=== PATIENT | female | born 1985 | race American Indian/Alaskan Native ===

== ENCOUNTER 2016-05-16 07:49 | Emergency (ER) | payer OTHER ==
[2016-05-16 08:42] LABS: Basophils % (Auto) 0.2 % (0.0-1.8); Eosinophils % (Auto) 0.5 % (0.0-4.3); Mean Corpuscular HGB Conc 28 % (30-34); Platelet Count 322 K/mm3 (140-440); Red Blood Count 4.72 M/mm3 (3.65-5.03); White Blood Count 6.9 K/mm3 (4.5-11.0)
[2016-05-16 08:43] LABS: Hematocrit 29.9 % (30.3-42.9); Hemoglobin 8.5 gm/dl (10.1-14.3); Mean Corpuscular Hemoglobin 18 pg (28-32); Mean Corpuscular Volume 63 fl (79-97); Red Cell Distribution Width 24.1 % (13.2-15.2)
[2016-05-16 09:00] LABS: Alanine Aminotransferase 29 units/L (7-56); Albumin 3.9 g/dL (3.9-5); Albumin/Globulin Ratio 1.1 %; Alkaline Phosphatase 88 units/L (35-129); Anion Gap 20 mmol/L; Bilirubin,Total 0.4 mg/dL (0.1-1.2); Blood Urea Nitrogen 7 mg/dL (7-17); Calcium 8.3 mg/dL (8.4-10.2); Carbon Dioxide 23 mmol/L (22-30); Glucose 102 mg/dL (65-100); Lipase 26 units/L (13-60); Potassium 4.1 mmol/L (3.6-5.0); Sodium 138 mmol/L (137-145); Total Protein 7.3 g/dL (6.3-8.2)
--- NOTE | 2016-05-16 23:24 | Emergency Department Report ---
HPI - General Chief Complaint: Abdominal Pain Time Seen by Provider: 05/16/16 22:51 - HPI HPI: This is a 30-year-old Af[place] female presents to the emergency department with a one-week history of lower abdominal pain and more recently some right lower back pain. She denies any dysuria, vaginal bleeding, vaginal discharge, vomiting, fever, numbness or paresthesias or any problem with bowel or bladder. She does have some nausea. She tried some aspirin for her symptoms without much relief. She does not have a primary care doctor. No recent travel or sick contacts at home. She denies any past medical history. She has a past surgical history of appendectomy. ED Past Medical Hx - Past Medical History Previous Medical History?: No - Surgical History Past Surgical History?: Yes Hx Appendectomy: Yes - Social History Smoking Status: Never Smoker Substance Use Type: None - Medications Home Medications: Home Medications Medication Instructions Recorded Confirmed Last Taken Type Meclizine HCl [Antivert] 25 mg PO Q6H PRN #20 tablet 06/08/14 Unknown Rx Promethazine [Phenergan] 25 mg PO Q6H PRN #14 tablet 06/08/14 Unknown Rx HYDROcodone/APAP 5-325 [[place] 1 each PO Q6HR PRN #10 tablet 05/17/16 Unknown Rx 5/325] ED Review of Systems ROS: Stated complaint: STOMACH AND BACK PAIN Other details as noted in HPI Comment: All other systems reviewed and negative Constitutional: denies: chills, fever Eyes: denies: eye pain, eye discharge, vision change ENT: denies: ear pain, throat pain Cardiovascular: denies: chest pain, palpitations Gastrointestinal: abdominal pain, nausea. denies: vomiting Genitourinary: denies: urgency, dysuria, discharge Musculoskeletal: back pain. denies: arthralgia Skin: denies: rash, lesions Neurological: denies: headache, weakness, paresthesias Physical Exam - Physical Exam Vital Signs: Vital Signs 05/16/16 08:05 Temperature 98.3 F Pulse Rate 98 H Respiratory 16 Rate Blood Pressure 152/84 O2 Sat by Pulse 100 Oximetry Physical Exam: GENERAL: The patient is well-developed well-nourished. HEENT: Normocephalic. Atraumatic. Extraocular motions are intact. Patient has moist mucous membranes. Pupils equal reactive to light bilaterally. NECK: Supple. Trachea is midline. CHEST/LUNGS: Clear to auscultation. There is no respiratory distress noted. HEART/CARDIOVASCULAR: Regular. There is no tachycardia. There is no gallop rub or murmur. ABDOMEN: Abdomen is soft. There is some tenderness to palpation to the lower quadrants of the abdomen. No guarding rebound tenderness. Morbidly obese habitus. Patient has normal bowel sounds. There is no abdominal distention. SKIN: There is no rash. Warm and dry. NEURO: The patient is awake, alert, and oriented. The patient is cooperative. The patient has no focal neurologic deficits. The patient has normal speech and gait. MUSCULOSKELETAL: There is no tenderness or deformity. There is no limitation range of motion. There is no evidence of acute injury. Muscle strength 5 out of 5 for upper and lower extremities bilaterally including EHL. BACK: No midline thoracic or lumbar tenderness to palpation or deformity. ED Course Vital Signs 05/16/16 08:05 Temperature 98.3 F Pulse Rate 98 H Respiratory 16 Rate Blood Pressure 152/84 O2 Sat by Pulse 100 Oximetry ED Medical Decision Making - Lab Data Result diagrams: 05/16/16 08:22 05/16/16 08:22 - Radiology Data Radiology results: image reviewed interpreted by me: Abdominal x-ray does not show any acute process. - Medical Decision Making 30-year-old female presents to the emergency department with a one-week history of lower abdominal and lower back pain. There are no focal, motor or sensory deficits, normal cranial nerves, no problems with bowel or bladder and no numbness or paresthesia. She does not appear to have any of the emergent back condition such as cauda equina, cord compression syndrome or epidural abscess. His vital signs of been stable throughout her ED course. Patient's labs and an unremarkable including no leukocytosis, electrolyte abnormalities, renal insufficiency, glucose abnormalities. She has normal belly labs including bilirubin, lipase and LFTs. No urinary tract infection and the patient is not . Abdominal x-ray does not show any acute process including no signs of obstruction. Patient was given a Percocet and did get some relief but not complete resolution. Patient decided that she did not want any further evaluation including no CT of the abdomen/pelvis. She'll be discharged home with referrals for primary care and some pain medication. She understands to return to the emergency department with any worsening of her symptoms or any acute distress. - Differential Diagnosis , fibroid, colitis, diverticulitis Critical Care Time: No Critical care attestation.: If time is entered above; I have spent that time in minutes in the direct care of this critically ill patient, excluding procedure time. ED Disposition Clinical Impression: Abdominal pain Qualifiers: Abdominal location: lower abdomen, unspecified Qualified Code(s): R10.30 - Lower abdominal pain, unspecified Back pain Qualifiers: Back pain location: low back pain Chronicity: acute Back pain laterality: bilateral Sciatica presence: without sciatica Qualified Code(s): M54.5 - Low back pain Disposition: DISCHARGED TO HOME OR SELFCARE Is pt being admited?: No Condition: Stable Instructions: Abdominal Pain (ED), Back Pain (ED) Additional Instructions: Please follow-up with a primary care doctor in the next few days. Return to the emergency department with any worsening of your symptoms or any acute distress. You've been prescribed a medication that is sedating. Therefore this medication cannot be mixed with alcohol, or taken prior to driving, working, or being responsible for children. Prescriptions: HYDROcodone/APAP 5-325 [[place] 5/325] 1 each PO Q6HR PRN #10 tablet PRN Reason: Pain Referrals: PRIMARY CARE, [Primary Care Provider] - 3-5 Days [facility] [Outside] - 3-5 Days [facility] [Outside] - 3-5 Days [facility] [Outside] - 3-5 Days Time of Disposition: 03:07
[2016-05-17 00:13] LABS: Bilirubin,Urine NEG (Negative); Blood,Urine MOD (Negative); Ketones,Urine NEG (Negative); Leukocyte Esterase,Urine TR (Negative); Mucus,Urine 3+ /HPF; Nitrite,Urine NEG (Negative); Urobilinogen,Urine < 2.0 mg/dL (<2.0)
[2016-05-17 00:30] VITALS: BP 149/73
[2016-05-17] MEDS ORDERED: PERCOCET 5/325 PO ONE (00:31)
[2016-05-17] MEDS ORDERED: MORPHINE IV ONE (02:21)
--- NOTE | 2016-05-17 08:08 | XRay Report ---
ABDOMEN TWO VIEWS: History: Abdominal pain. There is no evidence of free air beneath the diaphragms. The gas pattern within the abdomen is unremarkable. There is no evidence of bowel dilatation, significant air-fluid levels, or masses. The psoas margins are adequately visualized. IMPRESSION: Unremarkable abdomen.
== END 2016-05-17 03:18 | disposition home or self-care (01) ==
LOC: ED 07:49
DX: R10.30 Lower abdominal pain, unspecified (principal); M54.5 Low back pain; Z90.49 Acquired absence of other specified parts of digestive tract
CPT/HCPCS: 36415; 74020; 80053; 81001; 81025; 83690; 85025; 99284

== ENCOUNTER 2016-05-16 07:59 | Emergency (ER) | payer SELFPAY ==
[2016-05-17] MEDS ORDERED: NACL ONE (02:31)
== END 2016-05-16 08:24 | disposition home or self-care (01) ==
LOC: ED 07:59
DX: M54.5 Low back pain (principal); R10.9 Unspecified abdominal pain; Z53.21 Procedure and treatment not carried out due to patient leaving prior to being seen by health care provider